=== PATIENT | female | born 1950 | race Caucasian/White ===

== ENCOUNTER 2021-10-21 08:30 | Inpatient (IN) | payer OTHER ==
[~2021-10-21] VITALS: Ht 152.4 cm; Wt 87.5 kg
[~2021-10-21 08:30] MED LIST: ALL PO; CLONAZEPAM0.5 M1 PO; CULTURELLE CHE1 EACH PO; LIPITOR40 M1 PO; MAVIK PO; MAXIDE PO; NORVASC5 MG PO; SINGULAIR10 MG PO; TANDEM PO; TOPROL XL200 MG PO; [UNRECOGNIZED DRUG - OTHER] PO
[2021-10-23] MEDS ORDERED: SE-TAN PLUS CA1 EACH (09:33)
[2021-10-23] MEDS ORDERED: TRIAMTERENE-HC1 EAC1 (09:34)
[2021-10-23] MEDS ORDERED: CLOPIDOGREL BIS75 MG (09:34)
[2021-10-23] MEDS ORDERED: TRANDOLAPRIL4 MG (09:34)
[2021-10-23] MEDS ORDERED: CENTRUM ADULTS1 EACH PO (09:35)
[2021-10-23] MEDS ORDERED: DYRENIUM50 MG PO (09:37)
[2021-10-25] MEDS ORDERED: ULTRACET PO (12:38)
[2021-10-25] MEDS ORDERED: INTESTINEX680 M1 PO (12:38)
[2021-10-25] MEDS ORDERED: INTEGRA F CAPS1 EACH PO (12:38)
[2021-10-25] MEDS ORDERED: PRILOSEC OTC20 MG PO (12:38)
== END 2021-10-25 13:59 | disposition home or self-care (01) | DRG 330 ==
LOC: O/R 10-22 05:54 → SURG 10-22 14:00 → SURH 10-22 14:52
PROVIDERS: ADMIT Surgery; ATTEND Surgery
PROC: 07BB4ZZ Excision of Mesenteric Lymphatic, Percutaneous Endoscopic Approach (ICD-10-PCS; 2021-10-22)
PROC: 0DTF4ZZ Resection of Right Large Intestine, Percutaneous Endoscopic Approach (ICD-10-PCS; principal; 2021-10-22 15:30)
PROC: 4A12X4Z Monitoring of Cardiac Electrical Activity, External Approach (ICD-10-PCS; 2021-10-23)
DX: C18.0 Malignant neoplasm of cecum (principal); K92.1 Melena; D50.9 Iron deficiency anemia, unspecified; R59.0 Localized enlarged lymph nodes; I05.9 Rheumatic mitral valve disease, unspecified; I11.9 Hypertensive heart disease without heart failure; E78.5 Hyperlipidemia, unspecified; E66.9 Obesity, unspecified; Z68.37 Body mass index [BMI] 37.0-37.9, adult